=== PATIENT | male | born 1975 | race Caucasian/White ===

== ENCOUNTER 2017-02-17 12:15 | Observation (INO) ==
[2017-02-17] MEDS ORDERED: Aspirin 81 MG TAB.CHEW PO ONE (12:21)
[2017-02-17] MEDS ORDERED: Ipratropium/Albuterol Neb 3 ML IH ONE (12:22)
--- NOTE | 2017-02-17 12:25 | Emergency Department Note ---
Disposition Clinical Impression: Chest pain of uncertain etiology Disposition: Admitted As Inpatient Condition: Fair Time of Disposition: 18:07 Chest Pain HPI - General Chief Complaint: ED Chest Pain Stated Complaint: CP Time Seen by Provider: 02/17/17 12:20 Vital Signs Reviewed: Yes Nursing Notes Reviewed: Yes - History of Present Illness HPI Narrative: Mr. Prescott, 41-year-old male, presents from home via EMS for evaluation of chest pain and left upper quadrant abdominal pain. Left upper quadrant abdominal pain onset 3 days ago. Described as a general discomfort. Chest pain onset today while patient was showering. Described as left parasternal sharp stabbing. Nonradiating. Associated with dyspnea, mild vertigo. Patient's chest pain completely resolved with 3 sublingual nitroglycerin provided in route by EMS. PMH: Type 2 diabetes, hypertension, hyperlipidemia, COPD, CAD with stent 3, aortic stent, peripheral artery disease Habits: Current every day smoker Antiplatelet: Aspirin, Plavix ROS: Positive: Chest pain, dyspnea, diaphoresis, change in cough-nonproductive. Darkening of urine color. Negative: Fever, chills, nausea, vomiting, back pains, diarrhea, constipation, change in appetite - Related Data Home Medications Medication Instructions Recorded Confirmed Albuterol Sulfate [Albuterol 2 puff IH Q4H 10/13/14 02/17/17 Inhaler] Aspirin 81 mg PO DAILY 10/13/14 02/17/17 Clopidogrel [Plavix] 75 mg PO DAILY 10/13/14 02/17/17 Cyclobenzaprine HCl 5 mg PO 1-3XD PRN 10/13/14 02/17/17 Dicyclomine HCl 10 mg PO QID 10/13/14 02/17/17 Duloxetine HCl [Cymbalta] 60 mg PO DAILY 10/13/14 02/17/17 Insulin LISPRO [Humalog] 0 unit SQ DAILY 10/13/14 02/17/17 Lisinopril/Hydrochlorothiazide 1 tab PO DAILY 10/13/14 02/17/17 [Lisinopril-Hctz 10-12.5 mg Tab] Metoprolol Tartrate 25 mg PO 1-2XD 10/13/14 02/17/17 Ondansetron HCl [Zofran] 4 mg PO 1-3XD PRN 10/13/14 02/17/17 Oxycodone HCl/Acetaminophen 1 each PO 4-6XD PRN 10/13/14 02/17/17 [Percocet 7.5-325 mg Tablet] Pantoprazole Sodium [Protonix] 40 mg PO DAILY 10/13/14 02/17/17 Pregabalin [Lyrica] 150 mg PO BID 10/13/14 02/17/17 Sucralfate [Carafate] 1 gm PO 1-3XD 10/13/14 02/17/17 Tiotropium [Spiriva] 18 mcg IH 0700 10/13/14 02/17/17 clonazePAM [Klonopin] 0.5 mg PO 1-2XD PRN 10/13/14 02/17/17 Budesonide/Formoterol 80/4.5 2 puff IH BIDR 02/17/17 02/17/17 [Symbicort 80/4.5] Diclofenac Sodium 1 appl TP DAILY 02/17/17 02/17/17 Dulaglutide [Trulicity] 0.75 mg SQ QWEEK 02/17/17 02/17/17 Isosorbide MONOnitrate (24 HR) 30 mg PO DAILY 02/17/17 02/17/17 [Imdur] Ranolazine [Ranexa] 1,000 mg PO BID 02/17/17 02/17/17 Rosuvastatin [Crestor] 40 mg PO HS 02/17/17 02/17/17 Previous Rx's Medication Instructions Recorded Metformin HCl [Glucophage] 1,000 mg PO 1-2XD #30 10/13/14 Allergies Allergy/AdvReac Type Severity Reaction Status Date / Time acetaminophen [From Vicodin] AdvReac Itching Verified 02/17/17 12:25 gabapentin [From Neurontin] AdvReac Itching Verified 02/17/17 12:25 hydrocodone [From Vicodin] AdvReac Itching Verified 02/17/17 12:25 All systems ED: reviewed and negative except as stated. Review of Systems: As Per HPI Chest Pain PMH - Past Medical History Medical history: Reports: diabetes, GERD, hyperlipidemia, hypertension, peripheral artery disease Surgical history: Reports: LE stent(s) Psychiatric history: Reports: no psych history - Social History Smoking Status: Current every day smoker Alcohol use: Reports: none Drug use: Reports: none Physical Exam Vital Signs Reviewed General: Patient is alert, oriented, and in no acute distress. HEENT: No facial asymmetry. Head is normocephalic and atraumatic. Oral mucosa moist. Trachea midline. Cardiovascular: Heart regular rate and rhythm without clicks, rubs, gallops, or murmurs. No JVD. PMI nondisplaced. Respiratory: Symmetric chest rise with good respiratory effort. Bilateral breath sounds have diffuse wheeze and bibasilar coarse crackles. Abdomen: Obese. Bowel sounds present normoactive x-4 quadrants. Abdomen is soft, nondistended. Left upper quadrant discomfort. Musculoskeletal: Spontaneously moving all extremities. Neuro: Alert and oriented 4. Skin: Warm, dry, intact. Psych: Patient's affect is appropriate for situation. Course Course Narrative: She has concerning history of known coronary artery disease with stents. Perform chest pain workup. Clinically, suspects pulmonary infection is most likely etiology. We will also draw belly labs though low clinical suspicion for abdominal pathology based on history and physical. Will defer abdominal imaging at this time. EKG unchanged from previous. Troponin within normal limits. Patient has remained chest pain-free. Chest x-ray unremarkable. I discussed the above of the patient and family at bedside. They agreed to admission for chest pain rule out ACS. I discussed the patient with the admitting hospitalist, Dr. Gorman, who agrees to accept the patient for continued evaluation and management. Chest X-Ray 02/17/17 12:21 IMPRESSION: No acute abnormality is seen in the chest. Evidence for old granulomatous disease. D/ / Darron Madden MD / Darron Madden MD Interpreting Provider: Darron Madden MD Vital Signs Temperature 98.0 F 02/17/17 12:17 Pulse Rate 71 02/17/17 12:17 Respiratory Rate 18 02/17/17 12:17 Blood Pressure 160/102 02/17/17 12:17 O2 Sat by Pulse Oximetry 96 02/17/17 12:17 Temperature 98.2 F 02/17/17 15:04 Pulse Rate 70 02/17/17 15:04 Respiratory Rate 16 02/17/17 15:04 Blood Pressure 141/89 12/08/17 15:04 O2 Sat by Pulse Oximetry 96 02/17/17 15:04 Oxygen Delivery Oxygen Delivery Room Air Chest Pain - Medical Records Medical records reviewed: Yes I reviewed the patient's medical records. - Lab Data Lab results reviewed: Yes I reviewed the patient's lab results. Result diagrams: 02/17/17 12:34 02/17/17 12:34 Lab Results 02/17/17 02/17/17 02/17/17 Range/Units 12:34 12:34 12:34 WBC 9.1 (4.3-11.1) K/mcL RBC 5.12 (4.19-5.50) M/mcL Hgb 15.4 (12.9-16.9) g/dL Hct 44.4 (37.5-50.1) % MCV 86.7 (83.0-100.0) fL MCH 30.1 (28.0-33.3) pg MCHC 34.7 (31.6-35.5) g/dL RDW 13.4 (11.5-14.5) % Plt Count 217 (140-400) K/mcL MPV 9.6 (9.4-12.4) fL Immature Gran % 0.3 (0-4) % Seg Neutrophils % 61.9 % Lymphocytes % 27.1 % Monocytes % 7.3 % Eosinophils % 2.6 % Basophils % 0.8 % Neutrophils # 5.6 (1.6-8.9) K/mcL Lymphocytes # 2.5 (0.6-4.6) K/mcL Monocytes # 0.7 (0.0-1.3) K/mcL Eosinophils # 0.2 (0.0-0.6) K/mcL Basophils # 0.1 (0.0-0.2) K/mcL Sodium 136 (136-145) mEq/L Potassium 4.3 (3.5-4.5) mEq/L Chloride 103 (98-109) mEq/L Carbon Dioxide 24 (19-29) mEq/L BUN 10 (8-26) mg/dL Creatinine 0.88 (0.72-1.25) mg/dL Est GFR ( Amer) > 60 (> 60) Est GFR (Non-Af Amer) > 60 (> 60) BUN/Creatinine Ratio 11 (6-26) Glucose 209 H (70-99) mg/dL Calculated Osmolality 287 (280-300) Calcium 9.4 (8.6-10.8) mg/dL Total Bilirubin 0.5 (0.2-1.2) mg/dL Direct Bilirubin 0.2 (0.0-0.5) mg/dL Indirect Bilirubin 0.3 (0.0-1.2) mg/dL AST 17 (5-34) Units/L ALT 33 (0-55) Units/L Alkaline Phosphatase 38 (38-126) Units/L Troponin I (0-0.03) ng/mL B-Natriuretic Peptide 72 (0-100) pg/mL Serum Total Protein 7.3 (6.0-8.3) g/dL Albumin 3.8 (3.5-5.0) g/dL Globulin 3.5 (2.4-3.5) g/dL Albumin/Globulin Ratio 1.1 (1.1-2.2) Lipase 33 (8-78) Units/L Urine Color (Yellow) Urine Clarity (Clear) Urine pH (5.0-8.0) pH Units Ur Specific [place] (1.010-1.025) Urine Protein (Neg-Trace) mg/dL Urine Glucose (UA) (Normal) mg/dL Urine Ketones (Negative) mg/dL Urine Blood (Negative) Urine Nitrite (Negative) Urine Bilirubin (Negative) Urine Urobilinogen (Normal) mg/dL Ur Leukocyte Esterase (Negative) Ur Culture Indicated? (NO) 02/17/17 02/17/17 Range/Units 12:34 13:15 WBC (4.3-11.1) K/mcL RBC (4.19-5.50) M/mcL Hgb (12.9-16.9) g/dL Hct (37.5-50.1) % MCV (83.0-100.0) fL MCH (28.0-33.3) pg MCHC (31.6-35.5) g/dL RDW (11.5-14.5) % Plt Count (140-400) K/mcL MPV (9.4-12.4) fL Immature Gran % (0-4) % Seg Neutrophils % % Lymphocytes % % Monocytes % % Eosinophils % % Basophils % % Neutrophils # (1.6-8.9) K/mcL Lymphocytes # (0.6-4.6) K/mcL Monocytes # (0.0-1.3) K/mcL Eosinophils # (0.0-0.6) K/mcL Basophils # (0.0-0.2) K/mcL Sodium (136-145) mEq/L Potassium (3.5-4.5) mEq/L Chloride (98-109) mEq/L Carbon Dioxide (19-29) mEq/L BUN (8-26) mg/dL Creatinine (0.72-1.25) mg/dL Est GFR ( Amer) (> 60) Est GFR (Non-Af Amer) (> 60) BUN/Creatinine Ratio (6-26) Glucose (70-99) mg/dL Calculated Osmolality (280-300) Calcium (8.6-10.8) mg/dL Total Bilirubin (0.2-1.2) mg/dL Direct Bilirubin (0.0-0.5) mg/dL Indirect Bilirubin (0.0-1.2) mg/dL AST (5-34) Units/L ALT (0-55) Units/L Alkaline Phosphatase (38-126) Units/L Troponin I 0.00 (0-0.03) ng/mL B-Natriuretic Peptide (0-100) pg/mL Serum Total Protein (6.0-8.3) g/dL Albumin (3.5-5.0) g/dL Globulin (2.4-3.5) g/dL Albumin/Globulin Ratio (1.1-2.2) Lipase (8-78) Units/L Urine Color Yellow (Yellow) Urine Clarity Clear (Clear) Urine pH 6.0 (5.0-8.0) pH Units Ur Specific [place] 1.020 (1.010-1.025) Urine Protein Negative (Neg-Trace) mg/dL Urine Glucose (UA) 250 H (Normal) mg/dL Urine Ketones Negative (Negative) mg/dL Urine Blood Negative (Negative) Urine Nitrite Negative (Negative) Urine Bilirubin Negative (Negative) Urine Urobilinogen Normal (Normal) mg/dL Ur Leukocyte Esterase Negative (Negative) Ur Culture Indicated? NO (NO) - Radiology Data Radiology results reviewed: Yes I reviewed the patient's radiology results. - EKG Data EKG attestation: Yes I reviewed and interpreted this EKG. EKG results narrative: EKG gated only February 2017 at 12:22 interpreted as sinus rhythm with rate of 73. Normal minerals with OR 176, QRS 102, QT/QTc 381/407. Normal axis. T- wave flattening in lead V1 is present on comparative EKG. Otherwise nonspecific ST-T changes. Compared to previous EKG dated 03/21/2016 show no acute ischemic changes comparison. Heart Score - Score History: Moderately Suspicious EKG: Non Specific repolarisation Disturbance Age: Less than 45 Risk Factors: Equal/Greater than 3 risk factor or history of atherosclerotic disease Troponin: Less than normal limit HEART Score Total: 4
[2017-02-17 12:45] LABS: Basophils # 0.1 K/mcL (0.0-0.2); Basophils % 0.8 %; Eosinophils # 0.2 K/mcL (0.0-0.6); Eosinophils % 2.6 %; Hematocrit 44.4 % (37.5-50.1); Hemoglobin 15.4 g/dL (12.9-16.9); Immature Granulocytes % 0.3 % (0-4); Lymphocytes # 2.5 K/mcL (0.6-4.6); Lymphocytes % 27.1 %; Mean Corpuscular HGB Conc 34.7 g/dL (31.6-35.5); Mean Corpuscular Hemoglobin 30.1 pg (28.0-33.3); Mean Corpuscular Volume 86.7 fL (83.0-100.0); Mean Platelet Volume 9.6 fL (9.4-12.4); Monocytes # 0.7 K/mcL (0.0-1.3); Monocytes % 7.3 %; Neutrophils # 5.6 K/mcL (1.6-8.9); Platelet Count 217 K/mcL (140-400); Red Blood Count 5.12 M/mcL (4.19-5.50); Red Cell Distribution Width 13.4 % (11.5-14.5); Segmented Neutrophils % 61.9 %
[2017-02-17 13:00] LABS: Alanine Aminotransferase 33 Units/L (0-55); Albumin 3.8 g/dL (3.5-5.0); Albumin/Globulin Ratio 1.1 (1.1-2.2); Alkaline Phosphatase 38 Units/L (38-126); Aspartate Amino Transferase 17 Units/L (5-34); BUN/Creatinine Ratio 11 (6-26); Bilirubin,Direct 0.2 mg/dL (0.0-0.5); Bilirubin,Indirect 0.3 mg/dL (0.0-1.2); Bilirubin,Total 0.5 mg/dL (0.2-1.2); Blood Urea Nitrogen 10 mg/dL (8-26); Calcium 9.4 mg/dL (8.6-10.8); Carbon Dioxide 24 mEq/L (19-29); Chloride 103 mEq/L (98-109); Globulin 3.5 g/dL (2.4-3.5); Glucose 209 mg/dL (70-99); Lipase 33 Units/L (8-78); Osmolality,Calculated 287 (280-300); Potassium 4.3 mEq/L (3.5-4.5); Sodium 136 mEq/L (136-145); Total Protein 7.3 g/dL (6.0-8.3); eGFR For African Americans > 60 (> 60); eGFR For Non-African Americans > 60 (> 60)
--- NOTE | 2017-02-17 13:04 | Emergency Department Note ---
START Narrative - START START: I examined this patient and my medical decision-making was reviewed with the Resident Physician. I agree with the documented findings, disposition and treatment plan as described except to the extent set forth below. 41 year old female presnt to the Ed via EMS for complaints of cheste pain and LUQ abdominal pian and has a hsitory of COPD in addition to aortic stent placed here 4 years ago. PAtinet states he recieved ASA and nitro in route and his chest pain has relieved. Patient states that he has a cough that is at baseline althougho n exam he has diffuse wheezes and a bronchitic cough. WE will do cardiopylonary workup with belly labs and breathing treatemts. Likely admit ot meidicne for chestp ain rule out workup, will rule out COPD excerbation/ pnuemonia.
[2017-02-17 13:27] LABS: Bilirubin,Urine Negative (Negative); Blood,Urine Negative (Negative); Clarity,Urine Clear (Clear); Color,Urine Yellow (Yellow); Glucose,Urine (UA) 250 mg/dL (Normal); Ketones,Urine Negative (Negative); Leukocyte Esterase,Urine Negative (Negative); Nitrite,Urine Negative (Negative); Protein,Urine Negative (Neg-Trace); Urobilinogen,Urine Normal (Normal)
[2017-02-17] MEDS ORDERED: Naloxone 0.4 MG/ML INJ IVP PRN (15:04)
[2017-02-17] MEDS ORDERED: Ondansetron 4 MG/2 ML VIAL IVP PRN (15:04)
[2017-02-17] MEDS ORDERED: Acetaminophen 325 MG TABLET PO PRN (15:04)
[2017-02-17] MEDS ORDERED: *HR* Dextrose 50 % in Water (Syg) 50 ML SYRINGE IVP PRN (15:16)
[2017-02-17] MEDS ORDERED: Dextrose Gel 15 GM PO PRN ×2 (15:16)
[2017-02-17] MEDS ORDERED: D5% in Water 1,000 ML IVC PRN (15:16)
[2017-02-17] MEDS ORDERED: clonazePAM 0.5 MG TABLET PO PRN (15:16)
[2017-02-17] MEDS ORDERED: Nitroglycerin 0.4 MG TAB.SUBL SL PRN (15:19)
--- NOTE | 2017-02-17 15:30 | Internal Med History&Physical ---
Date of Encounter: 02/17/17 Time of Encounter: 14:30 Assessment and Plan (1) Chest pain Current visit: Yes Status: Acute Acute on chronic chest pain that pt. reports a.m. this morning while in the shower and he describes as left-sided, sharp and stabbing, intermittent, nonradiating. Patient has history of previous angioplasty and stent placement 4. Also reports previous attempts 3 stent placement without success due to blockage severity. Patient also reports shortness of breath and dizziness with sx. Patient denies recent echocardiogram or stress test. States he took nitro x3 which resolved chest pain. Cardiology consult ordered and discussed w/Dr. Denny and I appreciate the consult. Echocardiogram ordered. NPO at midnight for a.m. nuclear pharm stress test. Initial trop 0.00. Will trend x2. Continuous cardiac telemetry. Nitroglycerin PRN. Aspirin. Will continue pts. Plavix, Imdur, lisinopril/HCTZ, metoprolol, Ranexa, and Crestor. Pt. discussed w /Dr. Gorman who agrees w/plan o care. Pt. is high risk for cardiac event and further morbidity based on current sx, hx, and risk factors. Observation. Qualifiers: Chest pain type: other chest pain Qualified Code(s): R07.89 - Other chest pain; R07.8 - Other chest pain (2) SOB (shortness of breath) Current visit: Yes Status: Acute Acute SOB associated w/current sx. and chest pain. Supplemental O2 and SpO2 monitoring PRN. Falls/safety precautions. DuoNebs Q6 scheduled for SOB and will continue pts. inhalers. (3) Generalized weakness Current visit: Yes Status: Acute Acute generalized weakness and fatigue which patient reports is become worse over the past several months. Falls/syncope precautions. PT/OT consults to assess patient for ambulation strength and safety. SW consult to assess pt. for possible home needs for post-discharge planning. (4) Diabetes Current visit: Yes Status: Acute Hx of chronic diabetes controlled by insulin pump. Pt. reports he left his insulin pump at home Will hold pts. oral anti-hyperglycemic medications and administer low-dose correction sliding scale insulin and hypoglycemic protocol. BG checks ACHS. A1c in a.m. labs. 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 Lipid panel in a.m. labs. Continue patient's Crestor. Qualifiers: Hyperlipidemia type: pure hypercholesterolemia Qualified Code(s): E78.00 - Pure hypercholesterolemia, unspecified; E78.0 - Pure hypercholesterolemia (6) HTN (hypertension) Current visit: Yes Status: Chronic Hx of chronic HTN. Monitor pt. and VS. Continue since Imdur, metoprolol, and lisinopril/HCTZ. Qualifiers: Hypertension type: essential hypertension Qualified Code(s): I10 - Essential (primary) hypertension (7) GERD (gastroesophageal reflux disease) Current visit: Yes Status: Chronic Hx of chronic GERD. IVP Zofran Q6 PRN. Continue pts. Protonix. Qualifiers: Esophagitis presence: esophagitis presence not specified Qualified Code(s) : K21.9 - Gastro-esophageal reflux disease without esophagitis (8) PAD (peripheral artery disease) Current visit: Yes Status: Chronic Hx of chronic PAD w/LE stents. Stable. Bilateral SCDs for DVT prophylaxis. (9) Tobacco abuse Current visit: Yes Status: Chronic Hx of chronic tobacco abuse. Pt. reports smoking 1 PPD. 14 mg nicotine patch daily ordered. (10) Depression Current visit: Yes Status: Chronic Hx of chronic depression. Will continue patient's Cymbalta. Qualifiers: Depression Type: unspecified Qualified Code(s): F32.9 - Major depressive disorder, single episode, unspecified (11) DVT prophylaxis Current visit: Yes Status: Acute Bilateral SCDs for DVT prophylaxis. Internal Medicine - H&P: HPI Chief complaint: Chest pain Admitted From: Emergency Dept Plans for Post Hospital Care: Home History of present illness: Mr. Prescott is a 41 year old male with medical hx of insulin-dependent diabetes, GERD, HIV, HTN, PAD, and previous angioplasties/stents 4 presents from the ED with chief complaint of chest pain that he states began at 10 AM this morning when he was in the shower and he describes as left-sided, sharp and stabbing, and intermediate in duration with no radiation. He should also reports shortness of breath and mild dizziness. Patient states he has had chest pain intermittently for some time and has history of previous angioplasties, with last being in October 2014. Last echocardiogram was in 10/25 and reports no recent stress test. Patient reports chest pain, shortness of breath, dizziness , generalized weakness, LUQ abdominal pain, and fatigue but denies recent illness, fever, chills, nausea, vomiting, diarrhea, constipation, abdominal pain , changes in vision, heart palpitations, headache, presyncope, or syncope. Past Med Surg Social Fam HX - Past Medical History Source: patient, old records reviewed, obtained from family Medical history: diabetes (Insulin pump dependent), GERD, hyperlipidemia, hypertension, peripheral artery disease Psychiatric history: depression - Past Surgical History Surgical History: angioplasty/stent, LE stent(s) - Social History Smoking Status: Current every day smoker Packs per day: 1 PPD Smokeless Tobacco Status: No Alcohol use: none Drug use: none Current living situation: Home, With Family Activity Level: Independent ambulation Recent Out of Country Travel Within the Last 8 Weeks: No Exposure or Possible Exposure to Illness During Travel: No - Family History Father Race: Family Member Ethnicity: Non- Living Status: Age at : 55 Cause of : CVA Hx Family Cardiac Disorders: Yes (Triple bypass, HTN, Pacemaker/AICD, NV) Hx Family Endocrine Disorder: Yes (DM) Mother Race: Family Member Ethnicity: Non- Living Status: Still Living Hx Family Genitourinary Disorders: Yes (CKD) Brother Race: Family Member Ethnicity: Non- Living Status: Still Living Hx Family Medical Disorders: No Sister Race: Family Member Ethnicity: Non- Living Status: Still Living Hx Family Cancer: Yes (Brain tumor) Hx Family Neurologic Disorders: Yes (Seizures) Internal Medicine - H&P: Meds Albuterol Sulfate [Albuterol Inhaler] 2 puff IH Q4H 10/13/14 [History] Aspirin 81 mg PO DAILY 10/13/14 [History] Clopidogrel [Plavix] 75 mg PO DAILY 10/13/14 [History] Cyclobenzaprine HCl 5 mg PO 1-3XD PRN 10/13/14 [History] Dicyclomine HCl 10 mg PO QID 10/13/14 [History] Duloxetine HCl [Cymbalta] 60 mg PO DAILY 10/13/14 [History] Insulin LISPRO [Humalog] 0 unit SQ DAILY 10/13/14 [History] Lisinopril/Hydrochlorothiazide [Lisinopril-Hctz 10-12.5 mg Tab] 1 tab PO DAILY 10/13/14 [History] Metformin HCl [Glucophage] 1,000 mg PO 1-2XD #30 10/13/14 [Rx] Metoprolol Tartrate 25 mg PO 1-2XD 10/13/14 [History] Ondansetron HCl [Zofran] 4 mg PO 1-3XD PRN 10/13/14 [History] Oxycodone HCl/Acetaminophen [Percocet 7.5-325 mg Tablet] 1 each PO 4-6XD PRN 05/25 [History] Pantoprazole Sodium [Protonix] 40 mg PO DAILY 10/13/14 [History] Pregabalin [Lyrica] 150 mg PO BID 10/13/14 [History] Sucralfate [Carafate] 1 gm PO 1-3XD 10/13/14 [History] Tiotropium [Spiriva] 18 mcg IH 0700 10/13/14 [History] clonazePAM [Klonopin] 0.5 mg PO 1-2XD PRN 10/13/14 [History] Budesonide/Formoterol 80/4.5 [Symbicort 80/4.5] 2 puff IH BIDR 02/17/17 [ History] Diclofenac Sodium 1 appl TP DAILY 02/17/17 [History] Dulaglutide [Trulicity] 0.75 mg SQ QWEEK 02/17/17 [History] Isosorbide MONOnitrate (24 HR) [Imdur] 30 mg PO DAILY 02/17/17 [History] Ranolazine [Ranexa] 1,000 mg PO BID 02/17/17 [History] Rosuvastatin [Crestor] 40 mg PO HS 02/17/17 [History] 3 Allergy/AdvReac Type Severity Reaction Status Date / Time acetaminophen [From Vicodin] AdvReac Itching Verified 02/17/17 12:25 gabapentin [From Neurontin] AdvReac Itching Verified 02/17/17 12:25 hydrocodone [From Vicodin] AdvReac Itching Verified 02/17/17 12:25 All Systems PM: A 10-system review of systems was performed and is negative for pertinent findings except as documented above in the HPI. - Constitutional Constitutional: as per HPI, fatigue, weakness, no chills, no fever(s), no night sweats - EENT Eyes: no change in vision, no discharge, no pain, no photophobia Ears: no ear discharge, no ear pain, no tinnitus Nose, mouth and throat: no dysphagia, no nasal discharge, no neck pain, no sore throat - Breasts Breasts: as per HPI - Cardiovascular Cardiovascular ROS IM: as per HPI, chest pain, dyspnea, dyspnea on exertion, edema (Reports occasional edema in BLEs), lightheadedness, no diaphoresis, no palpitations, no syncope - Respiratory Respiratory: as per HPI, cough, dyspnea, dyspnea on exertion, no wheezing, no excessive phlegm production - Gastrointestinal Gastrointestinal: as per HPI, abdominal pain (LUQ), no diarrhea, no hematemesis , no hematochezia, no melena, no nausea, no vomiting - Genitourinary Genitourinary ROS male: as per HPI - Musculoskeletal Musculoskeletal ROS IM: no numbness, no tingling - Integumentary Integumentary IM: no rash, no unusual bruising - Neurological Neurological ROS: as per HPI, dizziness, no confusion, no convulsions, no focal weakness, no numbness, no tingling, no tremor(s) - Psychiatric Psychiatric: as per HPI - Endocrine Endocrine IM: as per HPI - Hematologic/Lymphatic Hematologic/Lymphatic: no easy bruising - Allergic/Immunologic Allergic/Immunologic: as per HPI - Constitutional Vitals: Temp Pulse Resp BP Pulse Ox 98.2 F 70 16 141/89 96 02/17/17 15:04 02/17/17 15:04 02/17/17 15:04 02/17/17 15:04 02/17/17 15:04 General appearance: Present: cooperative, mild distress, A&O X 3, pleasant, obese, answers questions appropriately - Head Head exam: Present: atraumatic, normal inspection, normocephalic - Eye Eye exam: Present: PERRL, conjuntiva pink, sclera anicteric Pupils: Present: PERRL - ENT ENT exam: Present: normal exam, normal external ear exam - Neck Neck exam general surgery: Present: normal inspection, supple, trachea midline. Absent: lymphadenopathy - Respiratory Respiratory exam: Present: CTAB. Absent: accessory muscle use, rales, rhonchi, wheezes - Cardiovascular Cardiovascular exam: Present: RRR, +S1, +S2. Absent: diastolic murmur, gallop, rubs, systolic murmur - GI/Abdominal GI/Abdominal exam: Present: normal bowel sounds, soft, no peritoneal signs. Absent: distended, tenderness - Rectal Rectal exam: Present: deferred - Additional comments: exam deferred. - Extremities Exam Extremities exam: Present: normal inspection, warm, radial pulses palpable and symmetrical. Absent: calf tenderness, cyanotic, pedal edema - Back Exam Back exam: Present: normal inspection - Neurological Exam Neurological exam: Present: CN II-XII intact, oriented X3, no focal deficits. Absent: pronater drift, facial droop, speech deficit - Psychiatric Psychiatric exam: Present: normal affect, normal mood - Skin Skin exam: Present: dry, intact Internal Med - H&P Results - Labs CBC & Chem 7: 02/17/17 12:34 02/17/17 12:34 - EKG Data EKG shows normal: sinus rhythm - EKG Data Prior EKG available for review: yes EKG comments: 02/17/17 15:48 EKG dated 03/21/16 shows sinus rhythm with first-degree AV block. EKG dated 02/17/17 shows sinus rhythm and normal ECG. - Diagnostic Studies Chest x-ray Additional comments: Impressions Chest X-Ray 02/17/17 12:21 IMPRESSION: No acute abnormality is seen in the chest. Evidence for old granulomatous disease. D/ / Darron Madden MD / Darron Madden MD Interpreting Provider: Darron Madden MD
[2017-02-17] MEDS: Ipratropium/Albuterol Neb 3 ML IH SCH ×2 (16:24→22:45)
[2017-02-17] MEDS: Insulin LISPRO 300 UNITS/3 ML VIAL SQ SCH (17:32)
[2017-02-17 17:58] LABS: Amphetamine Screen,Urine Negative ng/mL (Cutoff=1000); Barbiturate Screen,Urine Negative ng/mL (Cutoff=200); Benzodiazepines Screen,Urine Negative ng/mL (Cutoff=200); Cannabinoid Screen,Urine Negative ng/mL (Cutoff = 50); Cocaine Screen,Urine Negative ng/mL (Cutoff= 300); Opiate Screen,Urine Negative ng/mL (Cutoff=300); Phencyclidine Screen,Urine Negative ng/mL (Cutoff=25)
[2017-02-17] MEDS ORDERED: *HR* OxyCODONE/APAP 7.5/325 TABLET PO PRN (18:01)
[2017-02-17] MEDS ORDERED: Insulin LISPRO 300 UNITS/3 ML VIAL SQ SCH (21:00)
[2017-02-17] MEDS: Ranolazine 500 MG TAB.ER.12H PO SCH (21:30)
[2017-02-17] MEDS: Pregabalin 75 MG CAPSULE PO SCH (21:31)
[2017-02-17] MEDS: Budesonide/Formoterol 80/4.5 MDI IH SCH (22:39)
[2017-02-18 01:07] LABS: Basophils # 0.1 K/mcL (0.0-0.2); Basophils % 0.7 %; Eosinophils # 0.2 K/mcL (0.0-0.6); Eosinophils % 2.5 %; Hematocrit 40.3 % (37.5-50.1); Immature Granulocytes % 0.4 % (0-4); Mean Corpuscular HGB Conc 34.7 g/dL (31.6-35.5); Mean Corpuscular Volume 86.5 fL (83.0-100.0); Mean Platelet Volume 9.2 fL (9.4-12.4); Monocytes # 0.6 K/mcL (0.0-1.3); Monocytes % 7.6 %; Neutrophils # 4.3 K/mcL (1.6-8.9); Platelet Count 178 K/mcL (140-400); Red Blood Count 4.66 M/mcL (4.19-5.50); Red Cell Distribution Width 13.4 % (11.5-14.5); Segmented Neutrophils % 52.8 %
[2017-02-18 01:14] LABS: INR 1.2; Prothrombin Time 12.7 Seconds (9.4-12.1)
[2017-02-18 01:18] LABS: Activated Partial Thrombo Time 28.5 Seconds (26.0-36.0)
[2017-02-18 01:23] LABS: Alanine Aminotransferase 26 Units/L (0-55); Albumin 3.4 g/dL (3.5-5.0); Alkaline Phosphatase 34 Units/L (38-126); Aspartate Amino Transferase 12 Units/L (5-34); BUN/Creatinine Ratio 12 (6-26); Bilirubin,Total 0.3 mg/dL (0.2-1.2); Blood Urea Nitrogen 12 mg/dL (8-26); Calcium 9.2 mg/dL (8.6-10.8); Carbon Dioxide 27 mEq/L (19-29); Chloride 102 mEq/L (98-109); Chol/HDL Ratio 4.8 (0-4.9); Cholesterol 116 mg/dL (< 200); Globulin 3.4 g/dL (2.4-3.5); Glucose 226 mg/dL (70-99); HDL Cholesterol 24 mg/dL (40-59); Osmolality,Calculated 289 (280-300); Potassium 3.9 mEq/L (3.5-4.5); Sodium 136 mEq/L (136-145); Total Protein 6.8 g/dL (6.0-8.3); Triglycerides 417 mg/dL (< 150); eGFR For African Americans > 60 (> 60); eGFR For Non-African Americans > 60 (> 60)
[2017-02-18] MEDS: Ipratropium/Albuterol Neb 3 ML IH SCH ×3 (03:34→12:55)
[2017-02-18] MEDS ORDERED: Regadenoson 0.4 MG/5 ML SYRINGE IVP ONE (06:05)
[2017-02-18] MEDS ORDERED: Tiotropium 18 MCG inhalation IH SCH (07:00)
--- NOTE | 2017-02-18 07:29 | Cardiology Consult Note ---
Date of Encounter: 02/18/17 Time of Encounter: 07:23 Assessment and Plan (1) Chest pain Current Visit: Yes Status: Chronic Stable angina with known CAD not amenable to PCI as per pt. Stress test likely would be positive and in setting of recent LHC would not pursue any further work up. 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 Likely Stable angina and pt is on appropriate medical management. Qualifiers: Chest pain type: other chest pain Qualified Code(s): R07.89 - Other chest pain; R07.8 - Other chest pain Discussion w patient/family: The assessment and plan as outlined above was discussed with the patient and/or family members who expressed understanding and agreement. All questions were answered. Thank you for involving us in the care of your patient. Please call with any questions. History of Present Illness Consult date: 02/18/17 Consult reason: chest pain Chief complaint: flank pain and chest pain History of present illness: Mr. Prescott is a 41 year old male knoown extensive hx of CAD, PAD presents to the ED with left sided abdominal pain and recent onset of a cough. He describes his chest pain as his typical angina likely stable angina which resolved with NTG. He had extensive disease of the CIRC/OM and medical management was recommended her at [facility]. Patient presented to [place] for second opinion (2-3 years ago) received PCI. Patient states he had a remaining vessel which could not be revascularized despite multiple attempts. His recent LHC was a year ago at [facility] which revealed no new changes. EKG unremarkable and CE's negative x 2. Past Med Surg Social Fam HX - Past Medical History Medical history: diabetes, GERD, hyperlipidemia, hypertension, peripheral artery disease Psychiatric history: no psych history - Past Surgical History Surgical History: LE stent(s) - Social History Smoking Status: Current every day smoker Packs per day: 1 PPD Smokeless Tobacco Status: No Alcohol use: none Drug use: none - Family History Father Race: Family Member Ethnicity: Non- Living Status: Age at : 55 Cause of : CVA Hx Family Cardiac Disorders: Yes (Triple bypass, HTN, Pacemaker/AICD, DE) Hx Family Respiratory Disorders: Yes Hx Family Endocrine Disorder: Yes (DM) Mother Race: Family Member Ethnicity: Non- Living Status: Still Living Hx Family Genitourinary Disorders: Yes (CKD) Brother Race: Family Member Ethnicity: Non- Living Status: Still Living Hx Family Medical Disorders: No Sister Race: Family Member Ethnicity: Non- Living Status: Still Living Hx Family Cancer: Yes (Brain tumor) Hx Family Neurologic Disorders: Yes (Seizures) Medications and Allergies Albuterol Sulfate [Albuterol Inhaler] 2 puff IH Q4H 10/13/14 [History] Aspirin 81 mg PO DAILY 10/13/14 [History] Clopidogrel [Plavix] 75 mg PO DAILY 10/13/14 [History] Cyclobenzaprine HCl 5 mg PO 1-3XD PRN 10/13/14 [History] Dicyclomine HCl 10 mg PO QID 10/13/14 [History] Duloxetine HCl [Cymbalta] 60 mg PO DAILY 10/13/14 [History] Insulin LISPRO [Humalog] 0 unit SQ DAILY 10/13/14 [History] Lisinopril/Hydrochlorothiazide [Lisinopril-Hctz 10-12.5 mg Tab] 1 tab PO DAILY 10/13/14 [History] Metformin HCl [Glucophage] 1,000 mg PO 1-2XD #30 10/13/14 [Rx] Metoprolol Tartrate 25 mg PO 1-2XD 10/13/14 [History] Ondansetron HCl [Zofran] 4 mg PO 1-3XD PRN 10/13/14 [History] Oxycodone HCl/Acetaminophen [Percocet 7.5-325 mg Tablet] 1 each PO 4-6XD PRN 05/25 [History] Pantoprazole Sodium [Protonix] 40 mg PO DAILY 10/13/14 [History] Pregabalin [Lyrica] 150 mg PO BID 10/13/14 [History] Sucralfate [Carafate] 1 gm PO 1-3XD 10/13/14 [History] Tiotropium [Spiriva] 18 mcg IH 0700 10/13/14 [History] clonazePAM [Klonopin] 0.5 mg PO 1-2XD PRN 10/13/14 [History] Budesonide/Formoterol 80/4.5 [Symbicort 80/4.5] 2 puff IH BIDR 02/17/17 [ History] Diclofenac Sodium 1 appl TP DAILY 02/17/17 [History] Dulaglutide [Trulicity] 0.75 mg SQ QWEEK 02/17/17 [History] Isosorbide MONOnitrate (24 HR) [Imdur] 30 mg PO DAILY 02/17/17 [History] Ranolazine [Ranexa] 1,000 mg PO BID 02/17/17 [History] Rosuvastatin [Crestor] 40 mg PO HS 02/17/17 [History] 3 Allergy/AdvReac Type Severity Reaction Status Date / Time acetaminophen [From Vicodin] AdvReac Itching Verified 02/17/17 12:25 gabapentin [From Neurontin] AdvReac Itching Verified 02/17/17 12:25 hydrocodone [From Vicodin] AdvReac Itching Verified 02/17/17 12:25 All Systems Review: A 10-system review of systems was performed and is negative for pertinent findings except as documented above in the HPI. Physical Examination Vital Signs, Last 4 Hours Temp Pulse Resp BP Pulse Ox 02/18/17 03:51 98.0 F 63 15 129/65 96 General: Conversant, No Apparent Distress HEENT: Atraumatic, Normocephaly, Mucus Membranes Moist Neck: No JVD, Normal carotid pulses Cardiac: Reg Rate and Rhythm, Normal S1 and S2, No Murmur Lungs: Normal Breath Sounds, No Wheeze, Rales, Rhonchi Neuro: Alert and responsive, No focal deficits noted Abdomen: Soft, Non-Tender Skin: No rashes noted on visualized skin Musculoskeletal: No Chest Wall Tenderness Extremities: No Clubbing, No Cyanosis, No Edema, Normal Pulses Results 02/18/17 01:00 02/18/17 01:00 Lab Results 02/17/17 02/18/17 02/18/17 18:25 01:00 01:00 WBC 8.2 Hgb 14.0 Hct 40.3 Plt Count 178 INR APTT Sodium Potassium Chloride Carbon Dioxide BUN Creatinine Glucose Calcium Magnesium Total Bilirubin AST ALT Alkaline Phosphatase Troponin I 0.01 0.01 02/18/17 02/18/17 01:00 01:00 WBC Hgb Hct Plt Count INR 1.2 APTT 28.5 Sodium 136 Potassium 3.9 Chloride 102 Carbon Dioxide 27 BUN 12 Creatinine 0.99 Glucose 226 H Calcium 9.2 Magnesium 2.0 Total Bilirubin 0.3 AST 12 ALT 26 Alkaline Phosphatase 34 L Troponin I Consult Discharge Plan - Plan Referrals: Shazia Choudhary MD [Primary Care Provider] -
[2017-02-18] MEDS: Insulin LISPRO 300 UNITS/3 ML VIAL SQ SCH ×2 (08:47→11:34)
[2017-02-18] MEDS: Ranolazine 500 MG TAB.ER.12H PO SCH (08:47)
[2017-02-18] MEDS: Pregabalin 75 MG CAPSULE PO SCH (08:48)
[2017-02-18] MEDS ORDERED: Nicotine 14 MG PATCH.TD24 TD SCH (09:00)
[2017-02-18] MEDS ORDERED: Aspirin 81 MG TAB.CHEW PO SCH (09:00)
[2017-02-18] MEDS ORDERED: Isosorbide MONOnitrate (24 HR) 30 MG TAB.ER.24H PO SCH (09:00)
[2017-02-18] MEDS ORDERED: DICLOFENAC SODIUM APPL TP SCH (09:00)
[2017-02-18] MEDS ORDERED: Sucralfate 1 GM TABLET PO SCH (09:00)
[2017-02-18] MEDS: Budesonide/Formoterol 80/4.5 MDI IH SCH (10:52)
--- NOTE | 2017-02-18 11:59 | Cardiology Progress Note ---
Date of Encounter: 02/18/17 Time of Encounter: 11:00 Assessment and Plan (1) Chest pain Current Visit: Yes Status: Chronic Per cardiology: -States presented to [facility] due to abdominal pain. -Has chronic Stable angina with known CAD not amenable to PCI as per pt. -Patient reports recent cardiac work up per primary avionics safety inspector. -ON asa, statin, beta rose, plavix, imdur, and ranexa. -Troponins negative. -No acute ischemic ECG changes. -Cardiology will sign off. Recommned patient follow with primary avionics safety inspector in 2-4 weeks. Patient states understanding. Qualifiers: Chest pain type: other chest pain Qualified Code(s): R07.89 - Other chest pain; R07.8 - Other chest pain Discussion w patient/family: The assessment and plan as outlined above was discussed with the patient who expressed understanding and agreement. All questions were answered. Thank you for involving us in the care of your patient. Please call with any questions. Discussed and reviewed with . Subjective Principal diagnosis: Abdomenal pain Interval history: Patient denies chest pain. Patient states abdominal pain is better today. Objective Vital Signs, Last 4 Hours Temp Pulse Resp BP Pulse Ox 02/18/17 11:18 98.0 F 74 16 165/78 94 02/18/17 10:54 16 97 02/18/17 08:42 98 F 70 16 138/92 98 General: Conversant, No Apparent Distress HEENT: Atraumatic, Normocephaly, Mucus Membranes Moist Neck: No JVD, Normal carotid pulses Cardiac: Reg Rate and Rhythm, Normal S1 and S2, No Murmur Lungs: Normal Breath Sounds, No Wheeze, Rales, Rhonchi Neuro: Alert and responsive, No focal deficits noted Abdomen: Soft, Non-Tender Skin: No rashes noted on visualized skin Musculoskeletal: No Chest Wall Tenderness Extremities: No Clubbing, No Cyanosis, No Edema, Normal Pulses Results 02/18/17 01:00 02/18/17 01:00 Lab Results Impressions Chest X-Ray 02/17/17 12:21 IMPRESSION: No acute abnormality is seen in the chest. Evidence for old granulomatous disease. D/ / Darron Madden MD / Darron Madden MD Interpreting Provider: Darron Madden MD Active Medications Acetaminophen (Tylenol) 650 mg PO Q6HR PRN PRN Reason: Mild Pain (1-3) Stop: 08/19/17 15:05 Albuterol Sulfate (Albuterol Inhaler) 2 puff IH [id number] [facility] Stop: 08/19/17 16:01 Last Admin: 02/18/17 10:53 Dose: 2 puff Albuterol/Ipratropium (Duoneb) 3 ml IH [id number] [facility] Stop: 08/19/17 16:01 Last Admin: 02/18/17 03:34 Dose: Not Given Aspirin (Aspirin) 81 mg PO DAILY [facility] Stop: 08/20/17 09:01 Last Admin: 02/18/17 08:48 Dose: 81 mg Budesonide/Formoterol Fumarate (Symbicort) 2 puff IH BIDR [facility] PRN Reason: Protocol Stop: 08/19/17 22:01 Last Admin: 02/18/17 10:52 Dose: 2 puff Clonazepam (Klonopin) 0.5 mg PO BID PRN PRN Reason: Anxiety Stop: 08/19/17 15:17 Clopidogrel Bisulfate (Plavix) 75 mg PO DAILY [facility] Stop: 08/20/17 09:01 Last Admin: 02/18/17 08:47 Dose: 75 mg Cyclobenzaprine HCl (Flexeril) 5 mg PO BID PRN PRN Reason: Muscle Spasm Stop: 08/19/17 15:17 Dextrose/Water (Dextrose 50% (Syg)) 25 ml IVP AD PRN PRN Reason: Hypoglycemia Stop: 08/19/17 15:17 Dicyclomine HCl (Bentyl) 10 mg PO QID [facility] Stop: 08/19/17 17:01 Last Admin: 02/18/17 08:48 Dose: 10 mg Duloxetine HCl (Cymbalta) 60 mg PO DAILY [facility] Stop: 08/20/17 09:01 Last Admin: 02/18/17 08:47 Dose: 60 mg Glucagon (Glucagen) 1 mg IM ONCE PRN PRN Reason: Hypoglycemia Stop: 08/19/17 15:17 Glucose (Gluctose) 15 gm PO ONCE PRN PRN Reason: Hypoglycemia Stop: 08/19/17 15:17 Glucose (Gluctose) 30 gm PO ONCE PRN PRN Reason: Hypoglycemia Stop: 08/19/17 15:17 Lisinopril/HCTZ (Prinzide 10-12.5) 1 each PO DAILY [facility] Stop: 08/20/17 09:01 Last Admin: 02/18/17 08:47 Dose: 1 each Dextrose (Dextrose 5%) 1,000 mls @ 100 mls/hr IVC .Q10H PRN PRN Reason: HYPOGLYCEMIA Stop: 08/19/17 15:17 Insulin Human Lispro (Humalog) 0 units SQ TIDAC [facility] PRN Reason: Protocol Stop: 08/19/17 16:31 Last Admin: 02/18/17 11:34 Dose: Not Given Insulin Human Lispro (Humalog) 0 units SQ HS [facility] PRN Reason: Protocol Stop: 08/19/17 21:01 Last Admin: 02/17/17 21:31 Dose: 3 units Isosorbide Mononitrate (Imdur) 30 mg PO DAILY [facility] Stop: 08/20/17 09:01 Last Admin: 02/18/17 08:48 Dose: 30 mg Metoprolol Tartrate (Lopressor) 25 mg PO DAILY [facility] Stop: 08/20/17 09:01 Last Admin: 02/18/17 08:48 Dose: 25 mg Naloxone HCl (Narcan) 0.4 mg IVP Q2MIN PRN PRN Reason: Opioid Reversal Stop: 08/19/17 15:05 Nicotine (Nicoderm) 14 mg TD DAILY [facility] PRN Reason: Protocol Stop: 08/20/17 09:01 Last Admin: 02/18/17 08:47 Dose: Not Given Nitroglycerin (Nitroglycerin) 0.4 mg SL Q5MIN PRN PRN Reason: Chest Pain Stop: 08/19/17 15:20 Omeprazole (Prilosec) 20 mg PO DAILY [facility] Stop: 08/20/17 09:01 Last Admin: 02/18/17 08:48 Dose: 20 mg Ondansetron HCl (Zofran) 4 mg IVP Q8HR PRN PRN Reason: Nausea And Vomiting Stop: 08/19/17 15:05 Oxycodone/Acetaminophen (Percocet 7.5/325) 1 each PO Q6H PRN PRN Reason: Pain Stop: 08/19/17 18:02 Last Admin: 02/17/17 19:37 Dose: 1 each Pharmacy Profile Note (Patient Taking Own Medication) 0 each TP DAILY [facility] Stop: 08/20/17 09:01 Last Admin: 02/18/17 08:48 Dose: Not Given Pregabalin (Lyrica) 150 mg PO BID [facility] Stop: 08/19/17 21:01 Last Admin: 02/18/17 08:48 Dose: 150 mg Ranolazine (Ranexa) 1,000 mg PO BID [facility] Stop: 08/19/17 21:01 Last Admin: 02/18/17 08:47 Dose: 1,000 mg Rosuvastatin Calcium (Crestor) 40 mg PO HS [facility] Stop: 08/19/17 21:01 Last Admin: 02/17/17 21:31 Dose: 40 mg Sucralfate (Carafate) 1 gm PO DAILY [facility] Stop: 08/20/17 09:01 Last Admin: 02/18/17 08:48 Dose: 1 gm Tiotropium [place] (Spiriva) 18 mcg IH 0700 [facility] Stop: 08/20/17 07:01 Laboratory Tests 02/17/17 02/17/17 02/18/17 12:34 18:25 01:00 Hgb Creatinine Troponin I 0.00 0.01 0.01 02/18/17 02/18/17 01:00 01:00 Hgb 14.0 Creatinine 0.99 Troponin I - Imaging and Cardiology Chest Xray: report reviewed Echo: report reviewed Cardiac cath: report reviewed - EKG Interpretation EKG results cardiology: other (Telemetry reviewed with average HR previous 12 hours noted to be 71, sinus rhythm.) - VTE Documentation of Mechanical Device: Intermittent pneumatic compression device Consult Discharge Plan - Plan Referrals: Shazia Choudhary MD [Primary Care Provider] -
--- NOTE | 2017-02-18 13:18 | Electrocardiograph Report ---
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
[2017-02-18 15:18] VITALS: BP 167/96
--- NOTE | 2017-02-18 15:18 | Discharge Summary ---
Date of Encounter: 02/18/17 Time of Encounter: 11:30 - Discharge Diagnosis (1) Chest pain Priority: Primary Status: Chronic Comments: Acute on chronic chest pain that pt. reports while in the shower prior to admission and he describes as left-sided, sharp and stabbing, intermittent, nonradiating. Patient has history of previous angioplasty and stent placement 4. Also reports previous attempts 3 stent placement without success due to blockage severity and small diameter of vessels. Patient also reports shortness of breath and dizziness with sx. Patient denies recent echocardiogram or stress test. States he took nitro x3 which resolved chest pain. Cardiology consult ordered and discussed w/Dr. Denny and I appreciate the consult. Echocardiogram and stress tests ordered and canceled. Troponins were negative 3. Cholesterol within normal limits, triglycerides are elevated at 417. EKG was normal sinus rhythm with a rate of 73, when necessary 176, QRS 102, QTC 407. Patient was seen by cardiology. Distress was most likely be positive in the setting of recent LHC in the do not recommend any further workup. Patient should follow-up with his general machinist at [place]. Cardiology feels this is most likely stable angina and patient is on appropriate medical management already. This morning on evaluation, patient reports that he did not have chest pain and that it was left upper quadrant pain that has since resolved. He states that he was given Bentyl in the emergency department which has relieved the pain, it did not return. There is no tenderness to palpation. The pain does not return and is not re-created with movement or deep inspiration. Abdomen is distended and soft, normal for patient. Bowel sounds are present. There is no tenderness. S1 and S2 is heard, regular rate and rhythm. There are no gallops, clicks, murmurs. Qualifiers: Chest pain type: other chest pain Qualified Code(s): R07.89 - Other chest pain; R07.8 - Other chest pain (2) Diabetes Priority: Secondary Status: Chronic Comments: A1c is 7.0%. Continue home medications and Accu-Cheks. 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 Continue Crestor and follow up with primary care. Qualifiers: Hyperlipidemia type: pure hypercholesterolemia Qualified Code(s): E78.00 - Pure hypercholesterolemia, unspecified; E78.0 - Pure hypercholesterolemia (4) HTN (hypertension) Priority: Secondary Status: Chronic Comments: Continue home medications. Qualifiers: Hypertension type: essential hypertension Qualified Code(s): I10 - Essential (primary) hypertension (5) GERD (gastroesophageal reflux disease) Priority: Secondary Status: Chronic Comments: Chronic. Continue home medications. Qualifiers: Esophagitis presence: esophagitis presence not specified Qualified Code(s) : K21.9 - Gastro-esophageal reflux disease without esophagitis (6) Tobacco abuse Priority: Secondary Status: Chronic Comments: Patient denies desire for smoking cessation. He has departed the unit twice to go outside to smoke. (7) DVT prophylaxis Priority: Secondary Status: Acute Comments: Patient is ambulatory. (8) Generalized weakness Priority: Secondary Status: Acute Comments: Patient reports generalized weakness and fatigue which he reports has become worse over the past several months. She has requested home oxygen and was ambulated by primary nurse did not appear to have any difficulty or extreme fatigue. He has left the unit several times to go down 3 flights of stairs and outside to smoke cigarettes. He is anxious to go home and we have no physical therapy or occupational therapy until Monday, it is Monday. Patient can follow-up with primary care. (9) Depression Priority: Secondary Status: Chronic Comments: Chronic. Continue home medications. Qualifiers: Depression Type: unspecified Qualified Code(s): F32.9 - Major depressive disorder, single episode, unspecified (10) COPD (chronic obstructive pulmonary disease) Priority: Secondary Status: Chronic Comments: Patient reports history of COPD. He reports increasing shortness of breath over the last few months, onset of shortness of breath approximately one year ago. His lungs are clear and diminished throughout there is no wheezing, rales , rhonchi or respiratory distress. He denies increase in cough. Patient states that oxygen helps him feel better, he did not qualify for oxygen on a 6 minute walk. He will continue Spiriva and Symbicort, albuterol. He denies need for refills. Qualifiers: COPD type: unspecified COPD Qualified Code(s): J44.9 - Chronic obstructive pulmonary disease, unspecified - Discharge Medications Home Medications: Albuterol Sulfate [Albuterol Inhaler] 2 puff IH Q4H 10/13/14 [History] Aspirin 81 mg PO DAILY 10/13/14 [History] Clopidogrel [Plavix] 75 mg PO DAILY 10/13/14 [History] Cyclobenzaprine HCl 5 mg PO 1-3XD PRN 10/13/14 [History] Dicyclomine HCl 10 mg PO QID 10/13/14 [History] Duloxetine HCl [Cymbalta] 60 mg PO DAILY 10/13/14 [History] Insulin LISPRO [Humalog] 0 unit SQ DAILY 10/13/14 [History] Lisinopril/Hydrochlorothiazide [Lisinopril-Hctz 10-12.5 mg Tab] 1 tab PO DAILY 10/13/14 [History] Metformin HCl [Glucophage] 1,000 mg PO 1-2XD #30 10/13/14 [Rx] Metoprolol Tartrate 25 mg PO 1-2XD 10/13/14 [History] Ondansetron HCl [Zofran] 4 mg PO 1-3XD PRN 10/13/14 [History] Oxycodone HCl/Acetaminophen [Percocet 7.5-325 mg Tablet] 1 each PO 4-6XD PRN 05/25 [History] Pantoprazole Sodium [Protonix] 40 mg PO DAILY 10/13/14 [History] Pregabalin [Lyrica] 150 mg PO BID 10/13/14 [History] Sucralfate [Carafate] 1 gm PO 1-3XD 10/13/14 [History] Tiotropium [Spiriva] 18 mcg IH 0700 10/13/14 [History] clonazePAM [Klonopin] 0.5 mg PO 1-2XD PRN 10/13/14 [History] Budesonide/Formoterol 80/4.5 [Symbicort 80/4.5] 2 puff IH BIDR 02/17/17 [ History] Diclofenac Sodium 1 appl TP DAILY 02/17/17 [History] Dulaglutide [Trulicity] 0.75 mg SQ QWEEK 02/17/17 [History] Isosorbide MONOnitrate (24 HR) [Imdur] 30 mg PO DAILY 02/17/17 [History] Ranolazine [Ranexa] 1,000 mg PO BID 02/17/17 [History] Rosuvastatin [Crestor] 40 mg PO HS 02/17/17 [History] Allergies/Adverse Reactions: 3 Allergy/AdvReac Type Severity Reaction Status Date / Time acetaminophen [From Vicodin] AdvReac Itching Verified 02/17/17 12:25 gabapentin [From Neurontin] AdvReac Itching Verified 02/17/17 12:25 hydrocodone [From Vicodin] AdvReac Itching Verified 02/17/17 12:25 Date of admission: 02/17/17 14:16 Primary care physician: Shazia Choudhary Consults: 02/17/17 15:07 Consult to Bag Repairer [CONS] Routine Reason for SW Consult: Please assess patient for possible home needs for post -discharge planning (O2, assistive devices, nebulizer machine, etc.). 02/17/17 15:08 Consult to Occupational Therapy [CONS] Routine Comment: Evaluate, develop and implement POC Reason for Consult: Pt. reports dizziness and generalized weakness that affects his ambulation. Please assess for strength, stability, safety, ambulation, and possible assistive needs for post-discharge planning. 02/17/17 15:09 Consult to Physical Therapy [CONS] Routine Comment: Evaluate, develop and implement POC Reason for Consult: Pt. reports dizziness and generalized weakness that affects his ambulation. Please assess for strength, stability, safety, ambulation, and possible assistive needs for post-discharge planning. 02/17/17 15:20 Consult to Cardiology [CONS] Routine Comment: Consulting Provider: Cardiology Jazmyne Reason for Consult: Pt. has hx of previous chest pain requiring heart caths. Last cath in 10/25 along with last Echo. No recent stress test. Initial trop 0.00. Pt. reports chest pain began at 10 a.m. while showering and described as left-sided, sharp and stabbing intermittent pain w/o radiation. Hx of stents x4. Also reports three previous attempts w/stents but unable to do because of severe blockages. Pt. took nitro x3 which resolved pain sx. Risk factors include DM w/insulin, HTN, HLD, PAD, previous angioplasty w/stents x4, and current tobacco abuse (1 PPD). Echocardiogram ordered. Stress test ordered in a.m. w/pt NPO @midnight. Call Completed: Yes Discharging clinician: Daisy Tapia Anticipated date of discharge: 02/18/17 - Patient Status Disposition: Home, Self-Care Condition: Good Functional capacity at discharge: independent ambulation Overall status at discharge: patient is back to baseline - Discharge Instructions Follow Up With: Shazia Choudhary MD [Primary Care Provider] - - Diet and Activity Activity: resume usual activities as tolerated Diet: advance to your usual diet Hospital course: Mr. Prescott is a 41 year old male with extensive cardiac history including coronary artery disease, diabetes, hypertension, hyperlipidemia, peripheral arterial disease, smoking. He presents to the emergency department with left upper quadrant pain. He was worked up for chest pain. Since patient has had extensive testing in the past, cardiology has canceled his stress and echo. He will be seen by his general machinist at [place]. Patient denies abdominal pain. It was relieved with Bentyl in the emergency department. He denies chest or abdominal pain. Patient reports weakness that has gone on for several months. He was able to do a 6 minute walk on the unit without any signs of fatigue or distress, he also has left the department multiple times to go down 3 stories to smoke cigarettes outside. Patient's vital signs are stable, labs are stable and within normal limits. He is stable for discharge. - Time Spent with Patient Total time spent providing and/or coordinating discharge services: Less than 30 minutes - Constitutional Vitals: Temp Pulse Resp BP Pulse Ox 98.0 F 74 16 165/78 95 02/18/17 11:18 02/18/17 11:18 02/18/17 12:57 02/18/17 11:18 02/18/17 12:57 General appearance: Present: cooperative, mild distress, A&O X 3, pleasant, obese, answers questions appropriately - Head Head exam: Present: atraumatic, normocephalic - Eye Eye exam: Present: normal appearance, conjuntiva pink, sclera anicteric - Neck Neck exam general surgery: Present: supple, trachea midline. Absent: lymphadenopathy - Respiratory Respiratory exam: Present: CTAB. Absent: accessory muscle use, rales, rhonchi, wheezes - Cardiovascular Cardiovascular exam: Present: RRR, +S1, +S2. Absent: diastolic murmur, gallop, rubs, systolic murmur - GI/Abdominal GI/Abdominal exam: Present: normal bowel sounds, soft. Absent: distended, hepatomegaly, tenderness - Extremities Exam Extremities exam: Present: normal capillary refill, normal inspection, warm, radial pulses palpable and symmetrical. Absent: calf tenderness, cyanotic, pedal edema, tenderness - Neurological Exam Neurological exam: Present: alert, oriented X3, no focal deficits. Absent: facial droop, speech deficit - Skin Skin exam: Present: dry, intact, normal color, warm. Absent: rash - VTE Documentation of Mechanical Device: Intermittent pneumatic compression device
== END 2017-02-18 16:15 | disposition home or self-care (01) ==
LOC: EMEROO 12:15 → 3BNU 12:15
PROVIDERS: ADMIT Hospitalist; ATTEND Registered Nurse

== ENCOUNTER 2017-11-14 09:26 | Observation (INO) ==
--- NOTE | 2017-11-14 09:39 | Emergency Department Note ---
Disposition Clinical Impression: Unstable angina pectoris, Elevated troponin Disposition: Admitted As Inpatient Condition: Fair Referrals: Shazia Choudhary MD [Primary Care Provider] - Forms: ED Satisfaction Letter General Adult HPI - General Chief complaint: ED Chest Pain Stated complaint: Chest Pain Time Seen by Provider: 11/14/17 09:31 Nursing Notes Reviewed: Yes Vital Signs Reviewed: Yes - History of Present Illness HPI Narrative: Chief complaint is chest pain History of chief complaint is a 42-year-old gentleman has a history of coronary disease. He denies any stents he said he Alex lesions or cannot be stented. He follows with Dr. 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 He states he was at cardiac rehabilitation on a bike started getting chest pain which is happened before and last about 4 minutes and then stopped this is probably around 8:30 to 9:00. He denies any pain now. He said this pain feels similar to pain he said in the past. She has been more tired than usual but denies shortness of breath denies any leg pain. He does take aspirin and Plavix he had those this morning. Pain-free at this time. Past medical history reviewed in nurse's notes reviewed allergies reviewed in the list reviewed. - Related Data Home Medications Medication Instructions Recorded Confirmed Albuterol Sulfate [Albuterol 2 puff IH Q4H 10/13/14 11/14/17 Inhaler] Aspirin 81 mg PO DAILY 10/13/14 11/14/17 Clopidogrel [Plavix] 75 mg PO DAILY 10/13/14 11/14/17 Cyclobenzaprine HCl 5 mg PO 1-3XD PRN 10/13/14 11/14/17 Duloxetine HCl [Cymbalta] 60 mg PO DAILY 10/13/14 11/14/17 Insulin LISPRO [Humalog] 125 unit SQ DAILY MDD insulin pump 10/13/14 11/14/17 Metoprolol Tartrate 25 mg PO BID 10/13/14 11/14/17 Oxycodone HCl/Acetaminophen 1 each PO 4-6XD PRN 10/13/14 11/14/17 [Percocet 7.5-325 mg Tablet] Pantoprazole Sodium [Protonix] 40 mg PO DAILY 10/13/14 11/14/17 Pregabalin [Lyrica] 150 mg PO BID 10/13/14 11/14/17 Tiotropium [Spiriva] 2 puff IH DAILY 10/13/14 11/14/17 clonazePAM [Klonopin] 0.5 mg PO 1-2XD PRN 10/13/14 11/14/17 Budesonide/Formoterol 80/4.5 2 puff IH BIDR 02/17/17 11/14/17 [Symbicort 80/4.5] Dulaglutide [Trulicity] 0.75 mg SQ QWEEK 02/17/17 11/14/17 Isosorbide MONOnitrate (24 HR) 60 mg PO DAILY 02/17/17 11/14/17 [Imdur] Ranolazine [Ranexa] 1,000 mg PO BID 02/17/17 11/14/17 Rosuvastatin [Crestor] 40 mg PO HS 02/17/17 11/14/17 Metformin HCl [Glucophage] 1,000 mg PO BID 10/12/17 11/14/17 Nitroglycerin [Nitrostat] 0.4 mg SL PRN PRN 10/12/17 11/14/17 Furosemide [Lasix] 20 mg PO DAILY 11/14/17 11/14/17 Lisinopril [Zestril] 10 mg PO DAILY 11/14/17 11/14/17 Allergies Allergy/AdvReac Type Severity Reaction Status Date / Time acetaminophen [From Vicodin] AdvReac Itching Verified 09/23/17 14:02 gabapentin [From Neurontin] AdvReac Itching Verified 09/23/17 14:02 hydrocodone [From Vicodin] AdvReac Itching Verified 09/23/17 14:02 Review of Systems: Positive for being tired and chest pain which is now resolved. Denies shortness of breath, remaining review of systems are negative. All systems ED: reviewed and negative except as stated. Past Medical History - Past Medical History Medical history: Reports: COPD, coronary artery disease, diabetes, GERD, hyperlipidemia, hypertension, peripheral artery disease, other Surgical history: Reports: LE stent(s) Psychiatric history: Reports: no psych history - Social History Smoking Status: Current every day smoker Smokeless Tobacco Status: No Alcohol use: Reports: none Drug use: Reports: none Physical Exam Respiratory rate is 16 his heart rate is 90 and regular, sat on room air is 98% . Blood pressure is 148/70. Gen. he is alert and nontoxic in appearance no acute distress HEENT is normocephalic PERRL airways midline there is no drooling no stridor Cardiovascular is regular rate and rhythm without rubs or JVD chest dunn. Chest wall is free of Trauma and tenderness Lungs are clear to auscultation bilaterally with good aeration Abdomen is soft nonsurgical good bowel sounds no masses Extremities are present 4 good distal pulses Refill is brisk no pitting edema has no calf tenderness Dermatologic skin is warm and dry no rash petechia or jaundice neurologic no focal deficits cranial nerve motor sensory exam alert person place and time GCS is 15 Course Vital Signs Temperature 98.5 F 11/14/17 09:34 Pulse Rate 85 11/14/17 09:34 Respiratory Rate 15 11/14/17 09:34 Blood Pressure 136/93 11/14/17 09:34 O2 Sat by Pulse Oximetry 96 11/14/17 09:34 Temperature 98.5 F 11/14/17 09:34 Pulse Rate 78 11/14/17 10:36 Respiratory Rate 23 11/14/17 10:36 Blood Pressure 148/103 11/14/17 10:36 O2 Sat by Pulse Oximetry 97 11/14/17 10:36 Oxygen Delivery Oxygen Delivery Room Air Medical Decision Making - MDM Narrative Medical decision making narrative: We will start a cardiac workup on him he has no pain at this time he had baby aspirin and Plavix this morning. 0843 hrs. was an EKG done by EMS which shows a sinus rhythm rate is 90 QRS is 102 QTc is 405 a lot of artifact an EKG does look like is a right axis deviation but difficult to tell any signs of ischemia. 0933 hrs. EKG performed here shows a sinus rhythm rate 88 QRS 101 QTc is 375 no signs of ischemia or ectopy. Compared with an EKG he had done back in September shows no changes except for rate. Chest X-Ray 11/14/17 09:31 IMPRESSION: Perihilar opacities may represent mild vascular congestion. Asthma or an underlying viral infection may also be considered. D/ / Tavo Hood MD / Tavo Hood MD Interpreting Provider: Tavo Hood MD 1030 hrs.: Patient does have a positive troponin. He follows with a furnace operator at [facility]. Asked if he wanted to go there versus staying here and he like stay here. Waiting on his BNP to come back and then we will talk to hospitalist about admission. He is in agreement with plan. 1058 hrs.: BMP is back. Patient still is pain-free at like to stay here. Paging hospitalist for admission. Impression is elevated troponin with chest pain resolved. And STEMI. 1127 hrs.: Spoke with hospitalist. She is accepted her him for admission. She like to do a full aspirin since he had 81 mg today plenty is on aspirin and Plavix and we confirmed that and patient is agreement to the admission. - Lab Data Result diagrams: 11/14/17 09:37 11/14/17 09:37 Lab Results 11/14/17 11/14/17 11/14/17 Range/Units 09:37 09:37 09:37 WBC 9.2 (4.3-11.1) K/mcL RBC 5.65 H (4.19-5.50) M/mcL Hgb 16.8 (12.9-16.9) g/dL Hct 48.0 (37.5-50.1) % MCV 85.0 (83.0-100.0) fL MCH 29.7 (28.0-33.3) pg MCHC 35.0 (31.6-35.5) g/dL RDW 13.5 (11.5-14.5) % Plt Count 201 (140-400) K/mcL MPV 9.8 (9.4-12.4) fL Immature Gran % 0.3 (0-4) % Seg Neutrophils % 61.2 % Lymphocytes % 26.6 % Monocytes % 8.4 % Eosinophils % 2.8 % Basophils % 0.7 % Neutrophils # 5.6 (1.6-8.9) K/mcL Lymphocytes # 2.5 (0.6-4.6) K/mcL Monocytes # 0.8 (0.0-1.3) K/mcL Eosinophils # 0.3 (0.0-0.6) K/mcL Basophils # 0.1 (0.0-0.2) K/mcL Sodium 136 (136-145) mEq/L Potassium 3.9 (3.5-5.1) mEq/L Chloride 100 (98-107) mEq/L Carbon Dioxide 28 (23-29) mEq/L BUN 10 (6-20) mg/dL Creatinine 0.73 (0.70-1.30) mg/dL Est GFR ( Amer) > 60 (> 60) Est GFR (Non-Af Amer) > 60 (> 60) BUN/Creatinine Ratio 14 (6-26) Glucose 232 H (70-105) mg/dL Calculated Osmolality 288 (280-300) Calcium 10.2 (8.6-10.3) mg/dL Troponin I 0.05 H* (< 0.04) ng/mL B-Natriuretic Peptide 21 (Less than 100) pg/mL Critical Care Time Critical Care Time: Yes Total Critical Care Time: 30 Attestation: Excluding any separately billable procedures
[2017-11-14 10:15] LABS: Basophils # 0.1 K/mcL (0.0-0.2); Basophils % 0.7 %; Eosinophils # 0.3 K/mcL (0.0-0.6); Eosinophils % 2.8 %; Hemoglobin 16.8 g/dL (12.9-16.9); Immature Granulocytes % 0.3 % (0-4); Lymphocytes # 2.5 K/mcL (0.6-4.6); Lymphocytes % 26.6 %; Mean Corpuscular Hemoglobin 29.7 pg (28.0-33.3); Mean Platelet Volume 9.8 fL (9.4-12.4); Monocytes # 0.8 K/mcL (0.0-1.3); Monocytes % 8.4 %; Neutrophils # 5.6 K/mcL (1.6-8.9); Platelet Count 201 K/mcL (140-400); Red Blood Count 5.65 M/mcL (4.19-5.50); Red Cell Distribution Width 13.5 % (11.5-14.5); Segmented Neutrophils % 61.2 %
[2017-11-14 10:16] LABS: Troponin I 0.05 ng/mL (< 0.04)
[2017-11-14 10:28] LABS: BUN/Creatinine Ratio 14 (6-26); Blood Urea Nitrogen 10 mg/dL (6-20); Calcium 10.2 mg/dL (8.6-10.3); Carbon Dioxide 28 mEq/L (23-29); Chloride 100 mEq/L (98-107); Glucose 232 mg/dL (70-105); Osmolality,Calculated 288 (280-300); Potassium 3.9 mEq/L (3.5-5.1); Sodium 136 mEq/L (136-145); eGFR For Non-African Americans > 60 (> 60)
[2017-11-14] MEDS ORDERED: Aspirin 81 MG TAB.CHEW PO STA (11:26)
[2017-11-14 11:33] VITALS: BP 137/89
--- NOTE | 2017-11-14 15:05 | Event Note ---
Date of Encounter: 11/14/17 Time of Encounter: 15:00 This patient left AGAINST MEDICAL ADVICE as soon as he got to the observation unit. His reason is that he wants to be in the cardiac unit despite explanation by the RN that he is on telemetry and is being monitored as will be because in the cardiac unit. I did not have an opportunity to see this patient nor examine him.
--- NOTE | 2017-11-18 12:27 | Electrocardiograph Report ---
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
== END 2017-11-14 13:11 | disposition left against medical advice (07) ==
LOC: 3BNU 09:26 → EMEROOARM 09:26 → 3BNU 13:05
PROVIDERS: ADMIT Internal Medicine; ATTEND Internal Medicine

== ENCOUNTER 2018-09-15 18:38 | Observation (INO) ==
[2018-09-15] MEDS ORDERED: Nitroglycerin 0.4 MG TAB.SUBL SL PRN (19:15)
[2018-09-15] MEDS ORDERED: Ondansetron 4 MG/2 ML VIAL IVP ONE (19:30)
[2018-09-15] MEDS ORDERED: *HR* FentaNYL (PF) 100 MCG/2 ML VIAL IVP ONE (19:30)
[2018-09-15] MEDS ORDERED: 0.9 % Sodium Chloride 1,000 ML IVC ONE (19:30)
[2018-09-15 20:28] LABS: Bilirubin,Urine Negative (Negative); Blood,Urine Negative (Negative); Clarity,Urine Clear (Clear); Color,Urine Yellow (Yellow); Glucose,Urine (UA) >=1000 mg/dL (Normal); Ketones,Urine Negative (Negative); Leukocyte Esterase,Urine Negative (Negative); Nitrite,Urine Negative (Negative); PH,Urine 5.5 pH Units (5.0-8.0); Protein,Urine Negative (Neg-Trace); Specific Gravity,Urine > 1.030 (1.010-1.025); Urobilinogen,Urine Normal (Normal)
[2018-09-15 20:40] LABS: Amphetamine Screen,Urine Negative ng/mL (Cutoff=1000); Barbiturate Screen,Urine Negative ng/mL (Cutoff=200); Benzodiazepines Screen,Urine Negative ng/mL (Cutoff=200); Cannabinoid Screen,Urine Negative ng/mL (Cutoff = 50); Cocaine Screen,Urine Negative ng/mL (Cutoff= 300); Opiate Screen,Urine Positive ng/mL (Cutoff=300); Phencyclidine Screen,Urine Negative ng/mL (Cutoff=25)
[2018-09-15 20:45] LABS: Basophils # 0.1 K/mcL (0.0-0.2); Basophils % 0.7 %; Eosinophils # 0.2 K/mcL (0.0-0.6); Eosinophils % 1.3 %; Hematocrit 50.6 % (37.5-50.1); Hemoglobin 17.3 g/dL (12.9-16.9); Immature Granulocytes % 0.5 % (0-4); Lymphocytes # 3.5 K/mcL (0.6-4.6); Lymphocytes % 30.3 %; Mean Corpuscular HGB Conc 34.2 g/dL (31.6-35.5); Mean Corpuscular Hemoglobin 29.7 pg (28.0-33.3); Mean Corpuscular Volume 86.8 fL (83.0-100.0); Mean Platelet Volume 10.6 fL (9.4-12.4); Monocytes # 0.7 K/mcL (0.0-1.3); Monocytes % 6.5 %; Platelet Count 213 K/mcL (140-400); Red Blood Count 5.83 M/mcL (4.19-5.50); Segmented Neutrophils % 60.7 %; White Blood Count 11.5 K/mcL (4.3-11.1)
[2018-09-15 20:53] LABS: Alanine Aminotransferase 19 Units/L (7-52); Albumin 4.3 g/dL (3.5-5.7); Albumin/Globulin Ratio 1.8 (1.1-2.2); Alkaline Phosphatase 57 Units/L (34-104); Aspartate Amino Transferase 13 Units/L (13-39); BUN/Creatinine Ratio 18 (6-26); Bilirubin,Direct 0.1 mg/dL (0.0-0.2); Bilirubin,Indirect 0.3 mg/dL (0.0-1.2); Bilirubin,Total 0.4 mg/dL (0.3-1.0); Blood Urea Nitrogen 18 mg/dL (6-20); Carbon Dioxide 23 mEq/L (23-29); Chloride 103 mEq/L (98-107); Ethanol < 10 mg/dL (Less than 10); Globulin 2.4 g/dL (2.4-3.5); Glucose 155 mg/dL (70-105); Osmolality,Calculated 293 (280-300); Potassium 3.4 mEq/L (3.5-5.1); Sodium 139 mEq/L (136-145); Total Protein 6.7 g/dL (6.4-8.9); Troponin I < 0.03 ng/mL (< 0.04); eGFR For African Americans > 60 (> 60); eGFR For Non-African Americans > 60 (> 60)
[2018-09-15] MEDS ORDERED: 0.9 % Sodium Chloride 1,000 ML IVC SCH (22:30)
[2018-09-16] MEDS ORDERED: Potassium Chloride Elixir 20 MEQ/15 ML UDC PO ONE (01:42)
[2018-09-16] MEDS ORDERED: clonazePAM 0.5 MG TABLET PO PRN (01:45)
[2018-09-16] MEDS ORDERED: Acetaminophen 325 MG TABLET PO PRN (01:52)
[2018-09-16] MEDS ORDERED: Naloxone 0.4 MG/ML INJ IVP PRN (01:52)
[2018-09-16] MEDS ORDERED: *HR* Promethazine 25 MG/ML VIAL IVP PRN (01:52)
[2018-09-16] MEDS ORDERED: Nitroglycerin 0.4 MG TAB.SUBL SL PRN (02:03)
[2018-09-16] MEDS ORDERED: 0.9 % Sodium Chloride 1,000 ML IVC SCH (02:04)
[2018-09-16 02:51] LABS: Hematocrit 44.4 % (37.5-50.1); Mean Corpuscular HGB Conc 33.6 g/dL (31.6-35.5); Mean Corpuscular Volume 89.3 fL (83.0-100.0); Mean Platelet Volume 10.2 fL (9.4-12.4); Platelet Count 180 K/mcL (140-400); Red Blood Count 4.97 M/mcL (4.19-5.50)
[2018-09-16 02:57] LABS: Hemoglobin 14.9 g/dL (12.9-16.9)
[2018-09-16] MEDS ORDERED: *HR* Dextrose 50 % in Water (Syg) 50 ML SYRINGE IVP PRN (03:00)
[2018-09-16] MEDS ORDERED: D5% in Water 1,000 ML IVC PRN (03:00)
[2018-09-16] MEDS ORDERED: Dextrose Gel 15 GM/37.5 ML TUBE PO PRN ×2 (03:00)
[2018-09-16 03:07] LABS: BUN/Creatinine Ratio 24 (6-26); Blood Urea Nitrogen 21 mg/dL (6-20); Calcium 8.3 mg/dL (8.6-10.3); Carbon Dioxide 25 mEq/L (23-29); Chloride 108 mEq/L (98-107); Chol/HDL Ratio 5.1 (0-4.9); Cholesterol 118 mg/dL (< 200); Glucose 195 mg/dL (70-105); HDL Cholesterol 23 mg/dL (40-59); LDL Cholesterol,Calculated 37 mg/dL (0-99); Osmolality,Calculated 296 (280-300); Potassium 3.5 mEq/L (3.5-5.1); Sodium 139 mEq/L (136-145); Triglycerides 288 mg/dL (< 150); eGFR For African Americans > 60 (> 60); eGFR For Non-African Americans > 60 (> 60)
[2018-09-16 03:09] LABS: Troponin I < 0.03 ng/mL (< 0.04)
[2018-09-16 03:22] LABS: Thyroid Stimulating Hormone 0.922 mcIU/mL (0.340-5.600)
[2018-09-16] MEDS ORDERED: Insulin LISPRO 300 UNITS/3 ML VIAL SQ SCH ×5 (06:00→21:00)
[2018-09-16] MEDS ORDERED: Regadenoson 0.4 MG/5 ML SYRINGE IVP ONE (07:07)
[2018-09-16 07:44] VITALS: BP 109/69
[2018-09-16] MEDS ORDERED: Tiotropium 18 MCG inhalation IH SCH (09:00)
[2018-09-16] MEDS ORDERED: Aspirin 81 MG TAB.CHEW PO SCH (09:00)
[2018-09-16] MEDS ORDERED: Ranolazine 500 MG TAB.ER.12H PO SCH (09:00)
[2018-09-16] MEDS ORDERED: Pregabalin 75 MG CAPSULE PO SCH (09:00)
[2018-09-16] MEDS ORDERED: Budesonide/Formoterol 80/4.5 1 PUFF INH IH SCH (10:00)
[2018-09-17 12:45] LABS: Estimated Average Glucose 186 mg/dl
== END 2018-09-16 11:50 | disposition left against medical advice (07) ==
LOC: 2NENU 18:38 → EMEROOARM 18:38 → SUATTDRO 22:41 → 2NENU 23:33
PROVIDERS: ADMIT Internal Medicine; ATTEND Internal Medicine

== ENCOUNTER 2020-06-11 23:33 | Observation (INO) ==
[2020-06-12] MEDS ORDERED: Aspirin 325 MG TABLET PO ONE (00:13)
[2020-06-12 00:32] LABS: Basophils # 0.1 K/mcL (0.0-0.2); Basophils % 0.9 %; Eosinophils # 0.1 K/mcL (0.0-0.6); Eosinophils % 1.2 %; Hematocrit 49.8 % (37.5-50.1); Hemoglobin 16.7 g/dL (12.9-16.9); Immature Granulocytes % 0.6 % (0-4); Lymphocytes # 3.5 K/mcL (0.6-4.6); Mean Corpuscular HGB Conc 33.5 g/dL (31.6-35.5); Mean Corpuscular Hemoglobin 29.2 pg (28.0-33.3); Mean Corpuscular Volume 87.2 fL (83.0-100.0); Mean Platelet Volume 9.7 fL (9.4-12.4); Monocytes % 8.3 %; Neutrophils # 6.9 K/mcL (1.6-8.9); Platelet Count 231 K/mcL (140-400); Red Blood Count 5.71 M/mcL (4.19-5.50); Red Cell Distribution Width 14.1 % (11.5-14.5); White Blood Count 11.6 K/mcL (4.3-11.1)
[2020-06-12 00:33] LABS: BUN/Creatinine Ratio 18 (6-26); Blood Urea Nitrogen 14 mg/dL (6-20); Calcium 9.6 mg/dL (8.6-10.3); Carbon Dioxide 30 mEq/L (23-29); Chloride 103 mEq/L (98-107); Glucose 138 mg/dL (70-105); Osmolality,Calculated 295 (280-300); Potassium 3.7 mEq/L (3.5-5.1); Sodium 141 mEq/L (136-145); eGFR For African Americans > 60 (> 60); eGFR For Non-African Americans > 60 (> 60)
[2020-06-12 00:35] LABS: Troponin I < 0.03 ng/mL (< 0.04)
[2020-06-12] MEDS ORDERED: methylPREDNISolone 125 MG/2 ML VIAL IVP ONE (01:01)
[2020-06-12] MEDS ORDERED: Ipratropium/Albuterol Neb 3 ML IH ONE (01:01)
[2020-06-12] MEDS ORDERED: Acetaminophen 325 MG TABLET PO PRN (01:52)
[2020-06-12] MEDS ORDERED: Ondansetron 4 MG/2 ML VIAL IVP PRN (01:52)
[2020-06-12] MEDS ORDERED: Melatonin 3 MG TABLET PO PRN (01:52)
[2020-06-12] MEDS ORDERED: Naloxone 0.4 MG/ML INJ IVP PRN (01:52)
[2020-06-12] MEDS ORDERED: Perflutren Lipid Microsphere 1.3 ML in 0.9 % Sodium Chloride 8.7 ML IVP PRN (02:49)
[2020-06-12] MEDS ORDERED: D5% in Water 1,000 ML IVC PRN (02:54)
[2020-06-12] MEDS ORDERED: *HR* Dextrose 50 % in Water (Vial) 50 ML VIAL IVP PRN (02:54)
[2020-06-12] MEDS ORDERED: Dextrose Gel 15 GM/37.5 ML TUBE PO PRN ×2 (02:54)
[2020-06-12] MEDS: Ipratropium/Albuterol Neb 3 ML IH SCH ×3 (03:50→11:32)
[2020-06-12] MEDS ORDERED: Ipratropium Neb 0.5 MG NEBULIZER IH SCH (04:00)
[2020-06-12 04:10] LABS: Hematocrit 47.6 % (37.5-50.1); Mean Corpuscular HGB Conc 33.6 g/dL (31.6-35.5); Mean Corpuscular Volume 86.4 fL (83.0-100.0); Mean Platelet Volume 9.6 fL (9.4-12.4); Platelet Count 225 K/mcL (140-400); Red Blood Count 5.51 M/mcL (4.19-5.50); Red Cell Distribution Width 13.9 % (11.5-14.5); White Blood Count 10.9 K/mcL (4.3-11.1)
[2020-06-12 04:22] LABS: INR 1.1; Prothrombin Time 12.7 Seconds (9.4-12.1)
[2020-06-12 04:28] LABS: Albumin/Globulin Ratio 1.5 (1.1-2.2); Bilirubin,Direct 0.1 mg/dL (0.0-0.2); Bilirubin,Indirect 0.2 mg/dL (0.0-1.0); Bilirubin,Total 0.3 mg/dL (0.3-1.0); Globulin 2.6 g/dL (2.4-3.5); Total Protein 6.6 g/dL (6.4-8.9)
[2020-06-12 04:30] LABS: Chol/HDL Ratio 3.4 (0-4.9); Phosphorous 3.3 mg/dL (2.7-4.5)
[2020-06-12 05:38] LABS: Estimated Average Glucose 186 mg/dl; Hemoglobin A1C 8.1 %
[2020-06-12] MEDS ORDERED: *HR* Enoxaparin 40 MG/0.4 ML SYRINGE SQ SCH (06:00)
[2020-06-12] MEDS ORDERED: Regadenoson 0.4 MG/5 ML SYRINGE IVP ONE (06:04)
[2020-06-12] MEDS ORDERED: predniSONE 20 MG TABLET PO SCH ×2 (09:00)
[2020-06-12 10:48] VITALS: BP 156/90
[2020-06-12] MEDS ORDERED: Isosorbide MONOnitrate (24 HR) 30 MG TAB.ER.24H PO SCH (11:15)
[2020-06-12] MEDS ORDERED: lisinopriL 10 MG TABLET PO SCH (11:15)
[2020-06-12] MEDS ORDERED: Ranolazine 500 MG TAB.ER.12H PO SCH (11:45)
[2020-06-12] MEDS ORDERED: Pregabalin 75 MG CAPSULE PO SCH (12:00)
[2020-06-12] MEDS ORDERED: clonazePAM 0.5 MG TABLET PO SCH (21:00)
[2020-06-13] MEDS ORDERED: predniSONE 20 MG TABLET PO SCH (09:00)
== END 2020-06-12 12:00 | disposition home or self-care (01) ==
LOC: 3BNU 23:33 → EMEROOARM 23:33 → SUATTDRO 06-12 01:56 → 3BNU 06-12 02:16
PROVIDERS: ADMIT Family Medicine; ATTEND Internal Medicine

== ENCOUNTER 2021-01-06 00:35 | Observation (INO) ==
[2021-01-06] MEDS ORDERED: Isovue-370 500 ML BOTTLE IVP ONE (00:43)
[2021-01-06 01:01] LABS: Hematocrit 49.8 % (37.5-50.1); Hemoglobin 16.7 g/dL (12.9-16.9); Mean Corpuscular HGB Conc 33.5 g/dL (31.6-35.5); Mean Corpuscular Hemoglobin 29.9 pg (28.0-33.3); Mean Corpuscular Volume 89.2 fL (83.0-100.0); Mean Platelet Volume 9.4 fL (9.4-12.4); Platelet Count 222 K/mcL (140-400); Red Blood Count 5.58 M/mcL (4.19-5.50); Red Cell Distribution Width 13.6 % (11.5-14.5); White Blood Count 10.8 K/mcL (4.3-11.1)
[2021-01-06 01:08] LABS: INR 1.2; Prothrombin Time 13.1 Seconds (9.4-12.1)
[2021-01-06 01:11] LABS: Activated Partial Thrombo Time 38.5 Seconds (26.0-36.0)
[2021-01-06 01:55] LABS: BUN/Creatinine Ratio 18 (6-26); Blood Urea Nitrogen 14 mg/dL (6-20); Calcium 9.2 mg/dL (8.6-10.3); Carbon Dioxide 30 mEq/L (23-29); Chloride 104 mEq/L (98-107); Glucose 133 mg/dL (70-105); Osmolality,Calculated 294 (280-300); Potassium 3.3 mEq/L (3.5-5.1); Sodium 141 mEq/L (136-145); Troponin I < 0.03 ng/mL (< 0.04); eGFR For African Americans > 60 (> 60); eGFR For Non-African Americans > 60 (> 60)
[2021-01-06 02:47] LABS: Bilirubin,Urine Negative (Negative); Blood,Urine Negative (Negative); Clarity,Urine Clear (Clear); Color,Urine Light-Yellow (Yellow); Glucose,Urine (UA) >=1000 mg/dL (Normal); Ketones,Urine Negative (Negative); Leukocyte Esterase,Urine Negative (Negative); Nitrite,Urine Negative (Negative); PH,Urine 6.5 pH Units (5.0-8.0); Protein,Urine Negative (Neg-Trace); RBC,Urine 0-3 per hpf (0-3); Specific Gravity,Urine > 1.030 (1.010-1.025); Urobilinogen,Urine Normal (Normal); WBC,Urine 0-3 per hpf (0-3)
[2021-01-06 02:53] LABS: Ethanol < 10 mg/dL (Less than 10)
[2021-01-06 02:56] LABS: Amphetamine Screen,Urine Negative ng/mL (Cutoff=1000); Barbiturate Screen,Urine Negative ng/mL (Cutoff=200); Benzodiazepines Screen,Urine Negative ng/mL (Cutoff=200); Cannabinoid Screen,Urine Negative ng/mL (Cutoff = 50); Cocaine Screen,Urine Negative ng/mL (Cutoff= 300); Opiate Screen,Urine Negative ng/mL (Cutoff=300); Phencyclidine Screen,Urine Negative ng/mL (Cutoff=25)
[2021-01-06] MEDS ORDERED: Acetaminophen 325 MG TABLET PO PRN (03:01)
[2021-01-06] MEDS ORDERED: Perflutren Lipid Microsphere 1.3 ML in 0.9 % Sodium Chloride 8.7 ML IVP PRN (03:01)
[2021-01-06] MEDS ORDERED: Naloxone 0.4 MG/ML INJ IVP PRN (03:13)
[2021-01-06] MEDS ORDERED: *HR* Promethazine 25 MG/ML VIAL IM PRN (03:13)
[2021-01-06] MEDS ORDERED: Ondansetron 4 MG/2 ML VIAL IVP PRN (03:13)
[2021-01-06] MEDS ORDERED: *HR* Dextrose 50 % in Water (Syg) 50 ML SYRINGE IVP PRN (03:14)
[2021-01-06] MEDS ORDERED: Dextrose Gel 15 GM/37.5 ML TUBE PO PRN ×2 (03:14)
[2021-01-06] MEDS ORDERED: D5% in Water 1,000 ML IVC PRN (03:14)
[2021-01-06] MEDS ORDERED: Albuterol 2.5 MG/3 ML NEBULIZER IH PRN (04:00)
[2021-01-06 07:29] LABS: INR 1.2; Prothrombin Time 13.3 Seconds (9.4-12.1)
[2021-01-06 07:38] LABS: Chol/HDL Ratio 3.5 (0-4.9)
[2021-01-06] MEDS: Insulin LISPRO 300 UNITS/3 ML VIAL SUBQ SCH ×2 (08:55→11:11)
[2021-01-06] MEDS ORDERED: Aspirin Enteric Coated 81 MG Tablet PO SCH (09:00)
[2021-01-06 09:46] LABS: Estimated Average Glucose 186 mg/dl; Hemoglobin A1C 8.1 %
[2021-01-06 15:45] VITALS: BP 135/80; PULSE 74; TEMP 98.1; O2SAT 95
[2021-01-06] MEDS ORDERED: Insulin LISPRO 300 UNITS/3 ML VIAL SUBQ SCH (21:00)
== END 2021-01-06 16:55 | disposition home or self-care (01) ==
LOC: 3NENU 00:35 → EMEROOARM 00:35 → SUATTDRO 03:33 → 3NENU 04:34
PROVIDERS: ADMIT Internal Medicine; ATTEND Internal Medicine